=== PATIENT | female | born 1950 | race Caucasian/White ===

== ENCOUNTER → 2017-03-21 | Outpatient (REF) | payer OTHER ==
[2017-03-21 13:26] LABS: ALT/SGPT 23 U/L (12-78); ANION GAP 9 MEQ/L (8-16); BLOOD UREA NITROGEN 11 MG/DL (7-18); CALCIUM LEVEL 9.1 MG/DL (8.8-10.2); CARBON DIOXIDE LEVEL 23 MEQ/L (21-32); CHLORIDE LEVEL 107 MEQ/L (98-107); CHOLESTEROL LEVEL 210 MG/DL (<200); GLOMERULAR FILTRATION RATE > 60.0 (>45); GLUCOSE, FASTING 124 MG/DL (80-110); POTASSIUM SERUM 4.2 MEQ/L (3.5-5.1); SODIUM LEVEL 139 MEQ/L (136-145); TRIGLYCERIDES LEVEL 223 MG/DL (<150)
== END ==
LOC: M SFHCCLAY 08:57
PROVIDERS: ATTEND Family Medicine
DX: I10 Essential (primary) hypertension (principal); E78.2 Mixed hyperlipidemia; I25.10 Atherosclerotic heart disease of native coronary artery without angina pectoris

== ENCOUNTER → 2018-06-08 | Outpatient (REF) | payer OTHER ==
[2018-06-08 11:50] LABS: HEMATOCRIT 40.9 % (36.0-47.0); HEMOGLOBIN 14.2 g/dl (12.0-15.5); MEAN CORPUSCULAR HEMOGLOBIN 30.7 pg (27.0-33.0); MEAN CORPUSCULAR HGB CONC 34.7 g/dl (32.0-36.5); MEAN CORPUSCULAR VOLUME 88.3 fl (80.0-96.0); PLATELET COUNT, AUTOMATED 239 10^3/uL (150-450); RED BLOOD COUNT 4.63 10^6/uL (4.00-5.40); RED CELL DISTRIBUTION WIDTH 13.4 % (11.5-14.5); WHITE BLOOD COUNT 6.4 10^3/uL (4.0-10.0)
[2018-06-08 13:44] LABS: ALBUMIN 3.7 GM/DL (3.2-5.2); ALKALINE PHOSPHATASE 97 U/L (45-117); ALT/SGPT 45 U/L (12-78); ANION GAP 12 MEQ/L (8-16); AST/SGOT 28 U/L (7-37); BILIRUBIN,TOTAL 0.5 MG/DL (0.2-1.0); BLOOD UREA NITROGEN 15 MG/DL (7-18); CALCIUM LEVEL 8.6 MG/DL (8.8-10.2); CARBON DIOXIDE LEVEL 21 MEQ/L (21-32); CHLORIDE LEVEL 108 MEQ/L (98-107); CHOLESTEROL LEVEL 209 MG/DL (<200); CHOLESTEROL RISK RATIO 3.215 (<5); CREATININE FOR GFR 0.86 MG/DL (0.55-1.30); GLOMERULAR FILTRATION RATE > 60.0 (>45); GLUCOSE, FASTING 186 MG/DL (70-100); HDL CHOLESTEROL 65 MG/DL (>40); LDL CHOLESTEROL 106 MG/DL (<100); NON-HDL-C 144 MG/DL; POTASSIUM SERUM 4.4 MEQ/L (3.5-5.1); SODIUM LEVEL 141 MEQ/L (136-145); TOTAL PROTEIN 7.4 GM/DL (6.4-8.2); TRIGLYCERIDES LEVEL 189 MG/DL (<150)
== END ==
LOC: M SFHCCLAY 08:37
DX: I25.10 Atherosclerotic heart disease of native coronary artery without angina pectoris (principal); E78.2 Mixed hyperlipidemia; C50.912 Malignant neoplasm of unspecified site of left female breast
CPT/HCPCS: 80053

== ENCOUNTER → 2019-05-17 | Outpatient (REF) | payer MEDICARE, OTHER ==
[2019-05-17 11:49] LABS: HEMATOCRIT 41.9 % (36.0-47.0); MEAN CORPUSCULAR HEMOGLOBIN 29.9 pg (27.0-33.0); MEAN CORPUSCULAR HGB CONC 33.4 g/dl (32.0-36.5); MEAN CORPUSCULAR VOLUME 89.5 fl (80.0-96.0); PLATELET COUNT, AUTOMATED 250 10^3/uL (150-450); RED BLOOD COUNT 4.68 10^6/uL (4.00-5.40); WHITE BLOOD COUNT 6.8 10^3/uL (4.0-10.0)
[2019-05-17 11:56] LABS: ALBUMIN 3.6 GM/DL (3.2-5.2); ALT/SGPT 26 U/L (12-78); BILIRUBIN,TOTAL 0.4 MG/DL (0.2-1.0); BLOOD UREA NITROGEN 18 MG/DL (7-18); CARBON DIOXIDE LEVEL 25 MEQ/L (21-32); CHLORIDE LEVEL 107 MEQ/L (98-107); CHOLESTEROL LEVEL 184 MG/DL (<200); CREATININE FOR GFR 0.93 MG/DL (0.55-1.30); GLOMERULAR FILTRATION RATE > 60.0 (>45); GLUCOSE, FASTING 160 MG/DL (70-100); HDL CHOLESTEROL 63 MG/DL (>40); LDL CHOLESTEROL 96 MG/DL (<100); NON-HDL-C 121 MG/DL; POTASSIUM SERUM 4.4 MEQ/L (3.5-5.1); SODIUM LEVEL 139 MEQ/L (136-145); TRIGLYCERIDES LEVEL 127 MG/DL (<150)
== END ==
LOC: M SFHCCLAY 08:29
PROVIDERS: ATTEND Family Medicine
DX: I10 Essential (primary) hypertension (principal); I25.10 Atherosclerotic heart disease of native coronary artery without angina pectoris; C50.912 Malignant neoplasm of unspecified site of left female breast

== ENCOUNTER → 2020-03-11 | Outpatient (REF) | payer MEDICARE, OTHER | LOC: M LABDRAWC 11:42 | PROVIDERS: ATTEND Registered Nurse | DX: E53.1 Pyridoxine deficiency (principal); R20.2 Paresthesia of skin ==

== ENCOUNTER → 2020-03-11 | Outpatient (REF) | payer MEDICARE, OTHER ==
[2020-03-11 13:04] LABS: HEMATOCRIT 38.2 % (36.0-47.0); MEAN CORPUSCULAR HEMOGLOBIN 29.6 pg (27.0-33.0); PLATELET COUNT, AUTOMATED 302 10^3/uL (150-450); RED BLOOD COUNT 4.39 10^6/uL (4.00-5.40); WHITE BLOOD COUNT 6.4 10^3/uL (4.0-10.0)
[2020-03-11 13:36] LABS: CREATININE, URINE 36.3 MG/DL; MALB URINE SIEMENS < 5.0 MG/L; MAU/CREAT RATIO 13.7 MCG/MG (0.0-30.0)
[2020-03-11 13:40] LABS: ALBUMIN 3.4 GM/DL (3.2-5.2); ALT/SGPT 36 U/L (12-78); BILIRUBIN,TOTAL 0.4 MG/DL (0.2-1.0); BLOOD UREA NITROGEN 8 MG/DL (7-18); CALCIUM LEVEL 7.4 MG/DL (8.8-10.2); CARBON DIOXIDE LEVEL 27 MEQ/L (21-32); CHLORIDE LEVEL 101 MEQ/L (98-107); CREATININE FOR GFR 0.86 MG/DL (0.55-1.30); GLOMERULAR FILTRATION RATE > 60.0 (>45); GLUCOSE, FASTING 116 MG/DL (70-100); POTASSIUM SERUM 2.6 MEQ/L (3.5-5.1); SODIUM LEVEL 138 MEQ/L (136-145); TOTAL PROTEIN 6.9 GM/DL (6.4-8.2)
== END ==
LOC: M SFHCCLAY 09:25
PROVIDERS: ATTEND Family Medicine
DX: I25.10 Atherosclerotic heart disease of native coronary artery without angina pectoris (principal); I10 Essential (primary) hypertension; C50.912 Malignant neoplasm of unspecified site of left female breast; E11.42 Type 2 diabetes mellitus with diabetic polyneuropathy

== ENCOUNTER → 2020-03-31 | Outpatient (REF) | payer MEDICARE, OTHER ==
[2020-03-31 12:45] LABS: BLOOD UREA NITROGEN 9 MG/DL (7-18); CALCIUM LEVEL 7.8 MG/DL (8.8-10.2); CARBON DIOXIDE LEVEL 26 MEQ/L (21-32); CHLORIDE LEVEL 108 MEQ/L (98-107); CREATININE FOR GFR 0.91 MG/DL (0.55-1.30); GLOMERULAR FILTRATION RATE > 60.0 (>45); GLUCOSE, FASTING 109 MG/DL (70-100); POTASSIUM SERUM 3.8 MEQ/L (3.5-5.1); SODIUM LEVEL 139 MEQ/L (136-145)
== END ==
LOC: M SFHCCLAY 07:22
PROVIDERS: ATTEND Family Medicine
DX: E11.42 Type 2 diabetes mellitus with diabetic polyneuropathy (principal); E87.6 Hypokalemia
CPT/HCPCS: 80048; G0463

== ENCOUNTER → 2020-11-13 | Outpatient (REF) | payer MEDICARE, OTHER ==
[2020-11-13 11:58] LABS: BLOOD UREA NITROGEN 10 MG/DL (7-18); CARBON DIOXIDE LEVEL 26 MEQ/L (21-32); CHLORIDE LEVEL 108 MEQ/L (98-107); CREATININE FOR GFR 0.95 MG/DL (0.55-1.30); GLOMERULAR FILTRATION RATE > 60.0 (>39); GLUCOSE, FASTING 117 MG/DL (70-100); POTASSIUM SERUM 4.6 MEQ/L (3.5-5.1); SODIUM LEVEL 141 MEQ/L (136-145)
== END ==
LOC: M SFHCCLAY 08:32
PROVIDERS: ATTEND Family Medicine
DX: M89.8X9 Other specified disorders of bone, unspecified site (principal); T45.1X5A Adverse effect of antineoplastic and immunosuppressive drugs, initial encounter

== ENCOUNTER → 2020-11-20 | Outpatient (CLI) | payer MEDICARE, OTHER ==
--- NOTE | 2020-11-20 14:31 | REP ---
INDICATION: RIGHT HIP PAIN COMPARISON: None. TECHNIQUE: AP and frog-lateral views of the right femur. FINDINGS: No acute fracture or dislocation. Mild age-related degenerative changes at the hip includes increased sclerosis to the acetabulum with minimal marginal spurring and minimal joint space narrowing. IMPRESSION: Mild age-related degenerative changes at the right hip. <Electronically signed by Javi Galindo > 11/20/20 [id number]
--- NOTE | 2020-11-20 14:31 | REP ---
INDICATION: RIGHT HIP PAIN COMPARISON: None. TECHNIQUE: Single AP view of the right hip FINDINGS: Generalized age-related changes include subtle increased sclerosis to the acetabulum with minimal joint space narrowing. No further overt osteoarthritic or significant degenerative changes are appreciated. No evidence for acute or healed injury. Surrounding soft tissues are normal. IMPRESSION: Mild generalized age-related changes. <Electronically signed by Javi Galindo > 11/20/20 [id number]
== END ==
LOC: M CLY 13:45
PROVIDERS: ATTEND Family Medicine
DX: M16.11 Unilateral primary osteoarthritis, right hip (principal); M25.551 Pain in right hip
CPT/HCPCS: 73502; 73552; G0463

== ENCOUNTER → 2020-12-11 | Outpatient (CLI) | payer MEDICARE, OTHER ==
--- NOTE | 2020-12-11 15:49 | DEXAMM ---
INDICATION: DISORDER OF BONE/MANOPAUSAL/BREAST CA. COMPARISON: 06/04/2019, 03/06/2017. TECHNIQUE: Bone density was measured using dual-energy x-ray absorptiometry (DEXA). FINDINGS: AP SPINE L1-L4 BMD 1.266 g/cm2 Young Adult T-Score 0.6 Age Matched Z-Score 2.3. LT FEMUR, TOTAL BMD 1.031 g/cm2 Young Adult T-Score 0.2 Age Matched Z-Score 1.7. LT NECK BMD 0.913 g/cm2 Young Adult T-Score -0.9 Age Matched Z-Score 0.8. RT FEMUR, TOTAL BMD 0.941 g/cm2 Young Adult T-Score -0.5 Age Matched Z-Score 1.0. RT NECK BMD 0.937 g/cm2 Young Adult T-Score -0.7 Age Matched Z-Score 1.0. IMPRESSION: There is normal bone density of the spine. There is normal bone density of the left hip. There is normal bone density of the right hip. The density of the spine has increased 6.7% since the initial exam on 03/06/2017. The density of the spine increased 3.8% since most recent exam on 06/04/2019. The density of the left hip has increased 8.5% since initial exam on 03/06/2017. The density of the left hip has increased 3.5% since most recent exam on 06/04/2019. The density of the right hip was not performed on prior exams and therefore comparison is not made. FOLLOW-UP: Recommendation for the next bone density exam: 5 years. <Electronically signed by Dewayne Zayas > 12/11/20 [id number]
== END ==
LOC: M WHC 13:01
PROVIDERS: ATTEND Family Medicine
DX: C50.912 Malignant neoplasm of unspecified site of left female breast (principal); M89.8X9 Other specified disorders of bone, unspecified site; T45.1X5A Adverse effect of antineoplastic and immunosuppressive drugs, initial encounter; Z78.0 Asymptomatic menopausal state

== ENCOUNTER → 2021-02-19 | Outpatient (CLI) | payer MEDICARE, OTHER ==
--- NOTE | 2021-02-19 09:11 | REP ---
INDICATION: PAIN IN RT HIP. COMPARISON: None. TECHNIQUE: Frontal AP weight bearing and nonweightbearing views of the pelvis FINDINGS: Somewhat heterogeneous irregular appearance to the left iliac bone cannot be excluded and warrants further investigation. The bilateral hip joints appear symmetric and demonstrate relatively mild arthritic changes including increased sclerosis to the acetabular roof with minimal joint space narrowing remaining relatively stable on weight-bearing view. No obvious acute fracture. IMPRESSION: Somewhat irregular washed out appearance of the left iliac bone with central lucency. Consider pelvic CT for further investigation. <Electronically signed by Javi Galindo > 02/19/21 [id number]
== END ==
LOC: M SOG 08:36
PROVIDERS: ATTEND Orthopaedic Surgery Adult Reconstructive Orthopaedic Surgery
DX: M16.0 Bilateral primary osteoarthritis of hip (principal); M25.551 Pain in right hip

== ENCOUNTER → 2021-03-04 | Outpatient (CLI) | payer MEDICARE, OTHER ==
[~2021-03-04] MED LIST: METF-839 PO
--- NOTE | 2021-03-04 17:29 | REP ---
INDICATION: LUMBAGO W/ SCIATICA RT SIDE. COMPARISON: None. TECHNIQUE: Standard helical technique without intravenous contrast administration The examination was wintered in both bone and soft tissue settings. FINDINGS: There is a large soft tissue mass encircling the left ilium and measuring approximately 11.3 by 10 by 8.9 cm. This is causing osseous destruction of the left ilium. Extensive mixed density is seen throughout all imaged osseous structures of the pelvis and imaged portion of the spine particularly the alice. There is a transverse fracture through the right femoral neck. The imaged bowel loops are unremarkable. There is no evidence of free fluid or free air within the pelvis. IMPRESSION: 1. There is a large left-sided pipe pelvic soft tissue mass with bony destruction as described above. This is consistent with neoplasm. 2. There is osseous metastasis as described above. Does this patient a breast cancer? 3. There is an acute right femoral neck fracture. 4. A stat report was generated at the time of this dictation and faxed to the patient's healthcare provider Dr. Marlon Currie. <Electronically signed by Jd Sanchez > 03/04/21 [id number]
== END ==
LOC: M RAD 16:45
PROVIDERS: ATTEND Orthopaedic Surgery Adult Reconstructive Orthopaedic Surgery
DX: S72.001A Fracture of unspecified part of neck of right femur, initial encounter for closed fracture (principal); M54.41 Lumbago with sciatica, right side; X58.XXXA Exposure to other specified factors, initial encounter; Y92.9 Unspecified place or not applicable; Y99.9 Unspecified external cause status

== ENCOUNTER 2021-03-05 13:45 | Emergency (ER) | payer MEDICARE, OTHER ==
[~2021-03-05] VITALS: Ht 154.9 cm; Wt 84.1 kg
[2021-03-05] MEDS ORDERED: METF-839 PO (13:55)
[2021-03-05] MEDS ORDERED: NORCO, ANEXSIA 5/325MG TABLET (HYDROcodone/ACETAMINOPHEN) PO ONE (14:20)
--- NOTE | 2021-03-05 15:01 | REP ---
INDICATION: pre-op; metastatic disease. COMPARISON: 01/22/2014. TECHNIQUE: Single portable AP view of the chest was performed. FINDINGS: There is hazy opacity projecting over the left lung base at the left heart border. The left heart border is not visualized. The findings could be artifactual, but I cannot exclude a lingular infiltrate. The heart is not felt to be significantly enlarged. The mediastinal silhouette is unchanged, with mild calcification of the thoracic aorta. IMPRESSION: Possible lingular infiltrate versus artifact. <Electronically signed by Dewayne Zayas > 03/05/21 [id number]
[2021-03-05 15:10] LABS: BASO # 0.1 10^3/uL (0.0-0.2); BASO % 0.7 % (0.0-1.0); EOS # 0.2 10^3/uL (0.0-0.5); EOS % 2.3 % (0.0-3.0); LYMPH # 1.8 10^3/uL (1.5-5.0); LYMPH % 24.6 % (24.0-44.0); MEAN CORPUSCULAR HEMOGLOBIN 28.4 pg (27.0-33.0); MEAN CORPUSCULAR HGB CONC 32.5 g/dl (32.0-36.5); MEAN CORPUSCULAR VOLUME 87.3 fl (80.0-96.0); MONO # 0.7 10^3/uL (0.0-0.8); MONO % 9.4 % (2.0-8.0); NEUTROPHILS # 4.6 10^3/uL (1.5-8.5); NEUTROPHILS % 62.6 % (36.0-66.0); PLATELET COUNT, AUTOMATED 347 10^3/uL (150-450); RED BLOOD COUNT 4.58 10^6/uL (4.00-5.40); WHITE BLOOD COUNT 7.4 10^3/uL (4.0-10.0)
[2021-03-05 15:50] LABS: RSV AMPLIFICATION NEGATIVE (NEGATIVE)
--- NOTE | 2021-03-05 16:06 | CR.PDOC ---
General Date of Consultation: Mar 05, 2021 Consultation CHIEF COMPLAINT: Right hip pathologic fracture, pelvis soft tissue mass, bone mets on CT scan HISTORY OF PRESENT ILLNESS: The patient was seen in clinic earlier this month for hip pain that had been bothering her since November. The patient demonstrated primarily symptoms associated with her chronic back pain and radicular type symptoms. An incidental finding of abnormal washout of the patient's left iliac crest region was noted on her AP pelvic x-ray imaging by the radiologist. A CT scan was ordered for further evaluation. The CT scan was completed yesterday and there was a message from the radiology department with concerns for the soft tissue mass with bony metastasis evident on the CT scan as well as a displaced right femoral neck fracture. The patient was contacted by phone. She did report that she had a past medical history significant for breast cancer with her final treatments being approximately 5 years ago. She was being followed annually by Dr. Del Henry at [facility]. I contacted Dr. Henry's office today for coordination of care and advised that the patient present to the emergency room for admission for work-up of this soft tissue mass with associated metastasis and pathologic fracture. I was able to speak to Dr. Del Henry of the heme-onc service at [facility]. He advised biopsy of the soft tissue mass to confirm metastatic breast cancer versus a possible primary osteosarcoma as it has been over 5 years since her last treatments. He did provide his contact number of [phone] if the oncology service at [facility] needs contact him for any additional information or otherwise coordination of care. ASSESSMENT/PLAN: 1. Treatment of the patient's right hip fracture will depend on the results of a soft tissue biopsy of the left hemipelvis mass. I confirmed with Dr. Henry that the soft tissue mass would be best for the biopsy as bone biopsies in this situation can be misleading. ADDENDUM: Contacted ED Charge Nurse after not being informed of pt's admission status. Informed that patient had been transferred to [facility], I believe. Patient was not seen in person prior transfer. Vital Signs/I&O Vital Signs Date Time Temp Pulse Resp B/P (MAP) Pulse Ox O2 Delivery O2 Flow Rate FiO2 03/05/21 14:47 18 03/05/21 14:21 03/05/21 13:45 96.7 86 97 Laboratory Data Labs 24H Laboratory Tests 2 03/05/21 14:44: Immature Granulocyte % (Auto) 0.4, Neutrophils (%) (Auto) 62.6, Lymphocytes (%) (Auto) 24.6, Monocytes (%) (Auto) 9.4H, Eosinophils (%) (Auto) 2.3, Basophils (%) (Auto) 0.7, Neutrophils # (Auto) 4.6, Lymphocytes # (Auto) 1.8, Monocytes # (Auto) 0.7, Eosinophils # (Auto) 0.2, Basophils # (Auto) 0.1, Nucleated Red Blood Cells % (auto) 0.0, Coronavirus (COVID-19)(PCR) NEGATIVE, Influenza Type A (RT-PCR) NEGATIVE, Influenza Type B (RT-PCR) NEGATIVE, Respiratory Syncytial Virus (PCR) NEGATIVE CBC/BMP Laboratory Tests 03/05/21 14:44 Allergies Coded Allergies: No Known Drug Allergies (Verified Allergy, Unknown, 03/05/21) Home Medications Scheduled Metformin HCl (Metformin HCl) 500 Mg Tablet, 500 MG PO BID for 30 Days, #60 (Reported) POLI MESA MD Mar 05, 2021 16:06
[2021-03-05 17:04] LABS: ALBUMIN 3.1 GM/DL (3.2-5.2); ALT/SGPT 17 U/L (12-78); BILIRUBIN,DIRECT < 0.1 MG/DL (0.0-0.2); BILIRUBIN,TOTAL 0.3 MG/DL (0.2-1.0); BLOOD UREA NITROGEN 13 MG/DL (7-18); CALCIUM LEVEL 9.2 MG/DL (8.8-10.2); CARBON DIOXIDE LEVEL 26 MEQ/L (21-32); CHLORIDE LEVEL 102 MEQ/L (98-107); CREATININE FOR GFR 0.83 MG/DL (0.55-1.30); GLOMERULAR FILTRATION RATE > 60.0 (>39); GLUCOSE, FASTING 109 MG/DL (70-100); POTASSIUM SERUM 4.5 MEQ/L (3.5-5.1); SODIUM LEVEL 134 MEQ/L (136-145); TOTAL PROTEIN 6.7 GM/DL (6.4-8.2)
[2021-03-05 19:02] VITALS: BP 117/55
--- NOTE | 2021-03-06 20:42 | ECGEPIP ---
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
== END 2021-03-05 19:04 | disposition short-term general hospital (02) ==
LOC: M ED 13:45
DX: K76.9 Liver disease, unspecified (principal); M84.451A Pathological fracture, right femur, initial encounter for fracture; X58.XXXA Exposure to other specified factors, initial encounter; Y92.89 Other specified places as the place of occurrence of the external cause; I10 Essential (primary) hypertension; E11.9 Type 2 diabetes mellitus without complications; E78.5 Hyperlipidemia, unspecified; Z79.84 Long term (current) use of oral hypoglycemic drugs

== ENCOUNTER → 2021-03-30 | Outpatient (CLI) | payer MEDICARE, OTHER ==
[~2021-03-30] MED LIST changes: +ACET-683 PO; +ANAS1TAB2 PO; +ATOR1TAB19 PO; +EPIN0.3I11 IM; +NOXI1TAB PO; +OMEP1CAP73 PO; +POTA10TA16 PO
--- NOTE | 2021-03-30 17:26 | RADONC.CN ---
Radiation Oncology Hx/Consult Radiation Oncology Consult Date of Service: Mar 30, 2021 Pt Identifier Luz I Kidney is a 70 year old female with a history of left breast cancer diagnosed in 2015 and treated @ [facility] with BL mastectomy showing [id number] ER/DC+ HER2- Grade 2, stage IIIC, adjuvant chemotherapy and PMRT 50.4 Gy in 28 fractions completed 03/10/17. She then was maintained on arimidex. She subsequently developed metastatic disease in February 2021 and experienced pathologic fracture of the right femoral neck which was repaired @ [facility] by Dr. Olson on 03/08/21. She also has a large destructive left iliac bone lesion. Pathology confirmed metastatic breast cancer. She is seen today for co nsideration of palliative RT to the BL hips. Diagnosis/Treatment History Oncologic History As above Interval History She is here with her son. Has no major pain today. Right hip is doing well postoperatively. Incisions healed. On the left she notes occasional numbness down the back of the leg into the foot, she also has intermittent aching pain in the region of the left buttock. Appetite is good weight is stable to up. She has follow up with medical oncology (Dr. Henry in April). Past Medical History: DMII GERD HPL HTN Past Surgical History: As above Right hip arthroplasty 03/08/21 Family History: No family cancer history Social History: Former 1 ppd smoker quit 2004 25 pack year smoking history Does not drink Allergies / Meds Allergies: Coded Allergies: No Known Drug Allergies (Verified Allergy, Unknown, 03/05/21) Home Meds Reported Medications Omeprazole (Omeprazole) 20 Mg Capsule.dr, 1 CAP PO DAILY for 30 Days, #30 CAP 03/30/21 Vitamin D3/Folic Acid (Noxifol-D3 2,500 Unit-1 mg Tab) 2,500 Unit Tablet, 1 TAB PO DAILY for 30 Days, #30 TAB 03/30/21 Anastrozole (Anastrozole) 1 Mg Tablet, 1 TAB PO DAILY for 30 Days, #30 TAB 03/30/21 Atorvastatin Calcium (Atorvastatin Calcium) 10 Mg Tablet, 10 MG PO DAILY, TAB 03/30/21 Acetaminophen (Acetaminophen) 500 Mg Tablet, 500 MG PO Q6H PRN for PAIN, TAB 03/30/21 Potassium Chloride (Potassium Chloride) 10 Meq Tab.er.prt, 10 MEQ PO DAILY, TAB 03/30/21 Epinephrine (Epinephrine) 0.3 Mg/0.3 Ml Auto.injct, 0.3 MG IM 03/30/21 Metformin HCl (Metformin HCl) 500 Mg Tablet, 500 MG PO BID for 30 Days, #60 TAB 03/05/21 Review of Systems Constitutional: Reports: Fatigue; Denies: Chills, Fever, Night Sweats, Weight Loss Eyes: Denies: Pain HEENT: Denies: Head Aches Skin: Denies: Rash Pulmonary: Denies: Dyspnea, Cough Cardiovascular: Denies: Chest Pain Gastrointestinal: Denies: Abdominal Pain, Diarrhea Genitourinary: Denies: Dysuria, Incontinence Musculoskeletal: Reports: Joint pain; Denies: Neck pain, Back pain, Leg pain Neurological: Reports: Numbness; Denies: Weakness Psych: Reports: Mood Normal Vital Signs Wt 177 lbs T 96.7 P 115 RR 18 BP 160/87 Pain 0 Fatigue 0 General Exam: Positive: Alert, Cooperative, No Acute Distress Eye Exam: Positive: PERRLA, EOMI ENT EXAM: Positive: Mucous membr. moist/pink, Pharynx Normal Neck Exam: Negative: Thyromegaly, Lymphadenopathy Chest Exam: Positive: Clear to auscultation, Normal air movement Heart Exam: Positive: Rate Normal, Regular Rhythm Abdomen Exam: Positive: Soft; Negative: Tenderness, Mass Extremity Exam: Positive: Edema Skin Exam: Positive: Nl turgor and temperature Neuro Exam: Positive: Normal Gait, Cranial Nerves 3-12 NL Psych Exam: Positive: Mental status NL Diagnostic and Laboratory Diagnostic Review Radiologic images, relevant labs and pathology reports were personally reviewed and discussed with Ms. Shine. Assessment and Plan Impression Ms. Shine is a 70 year old female with a history of left breast cancer diagnosed in 2015 and treated @ [facility] with mastectomy showing [id number] ER/DC+ HER2- Grade 2, stage IIIC, adjuvant chemotherapy and PMRT 50.4 Gy in 28 fractions completed 03/10/17. She then was maintained on arimidex. She subsequently developed metastatic disease in February 2021 and experienced pathologic fracture of the right femoral neck which was repaired @ [facility] by Dr. Olson on 03/08/21. She also has a large destructive left iliac bone lesion. She is seen today for consideration of palliative RT to the BL hips. Stage Breast cancer stage IV Performance Status ECOG 1 Plan We had an extensive discussion with Ms. Shine regarding the diagnosis at hand and available therapeutic options. I reviewed her CT abdomen and pelvis from 03/04/21 which showed the pathologic right femoral neck fracture as well as a large expansile soft tissue emanating from the right iliac bone. I see no additional lesions or impending fractures on this scan. I have discussed with the [facility] team about completing restaging workup here in advance of her appointment with Dr. Henry in April. To that end I will order a CT chest and a bone scan which should be sufficient. For treatment at this time, I recommend PORT to the right hip 30 Gy in 10 fractions, I also think she would benefit from palliative RT to the left iliac lesion, 30 Gy in 10 fractions. These lesions can be easily treated concurrently with little risk of significant side effects. We discussed the logistics of receiving radiation therapy in detail including the need for a 1-time planning session. This can occur in the coming days. We reviewed the side effects of treatment including fatigue, skin reaction, fibrosis and self limited diarrhea. After discussing the risks, benefits and alternatives to radiation therapy, Ms. Shine was amenable to pursuing radiotherapy. All questions were answered to the patient's satisfaction. We instructed the patient that if there were any questions,concerns or changes in clinical status in the interim to contact us. Recommendations Palliative RT to the BL hips 30 Gy in 10 fractions Simulation in the coming week Ordered CT chest and bone scan to complete restaging Billing Statement Total time of [36] minutes was spent preparing for the visit [2], obtaining HPI [6], examining the patient [2], reviewing diagnostic tests [4], discussing management options [12], coordinating care [3], and writing this note [7]. LINDA PRUITT MD Mar 30, 2021 17:26
== END ==
LOC: M ONCR 14:42
PROVIDERS: ATTEND General Practice
DX: C79.51 Secondary malignant neoplasm of bone (principal); E11.9 Type 2 diabetes mellitus without complications; E78.5 Hyperlipidemia, unspecified; I10 Essential (primary) hypertension; K21.9 Gastro-esophageal reflux disease without esophagitis; Z79.84 Long term (current) use of oral hypoglycemic drugs; Z79.899 Other long term (current) drug therapy; Z85.3 Personal history of malignant neoplasm of breast; Z87.891 Personal history of nicotine dependence; Z90.13 Acquired absence of bilateral breasts and nipples; Z92.21 Personal history of antineoplastic chemotherapy; Z92.3 Personal history of irradiation; Z96.641 Presence of right artificial hip joint

== ENCOUNTER → 2021-04-02 | Outpatient (CLI) | payer MEDICARE, OTHER ==
[~2021-04-02] MED LIST changes: +ISOVUE-370 76% 100ML VIAL As Ordered ONE
--- NOTE | 2021-04-02 08:58 | REP ---
INDICATION: MET BREAST CA- NM FIRST. COMPARISON: AP 03/05/2021, two view 01/22/2014 TECHNIQUE: Seventy-five the mL Isovue 370 scanning through the chest with both coronal and sagittal reconstructions. FINDINGS: Of the lung spangler are well inflated. There is no pleural effusion, pleural thickening, calcified plaque or acute infiltrate. No parenchymal mass or pulmonary nodules. There is some minimal dependent atelectatic change posteriorly in the mid and lower lung zones right greater than left. Minimal curvilinear fibroatelectatic change in the inferior lingular segment of the left upper lobe at the anterior left lung base. The heart is not enlarged and there is no pericardial thickening or effusion. The aorta is without aneurysm or dissection and has some calcifications in the arch and descending portion. The main, left and right pulmonary arteries in the mediastinum were unremarkable. There are no pathologic sized mediastinal, hilar, axillary or supraclavicular nodes. Patient has symmetric breast implants status post mastectomies for breast cancer. There are axillary surgical clips on the left. The sternum, manubrium, spine and its posterior elements, visible portions of clavicles, scapula, humeral heads and ribs were all unremarkable, without focal lesion. Liver shows some heterogeneous appearance right hepatic lobe and medial segment of the left hepatic lobe for region of least a 6 x 9 cm. In addition the lateral segment left hepatic lobe shows a focus with hypodense rim about 4.7 cm with central heterogeneity. There is no ascites. No intrahepatic biliary dilatation. That portion of pancreatic body and tail seen is unremarkable. Spleen is not enlarged and shows no focal lesion. Adrenal glands are normal. Upper poles of kidneys intact. A small hiatal hernia is evident. Some atherosclerotic calcification of the aorta without aneurysm. IMPRESSION: 1. The lung spangler show no parenchymal finding the conform to the hazy density at the left base on recent portable chest. This suggests that that finding was artifact from chest wall such as the breast implant or resolution of subsegmental atelectasis. There is only minimal fibro atelectatic change in the lingula. No parenchymal lung lesions infiltrate or mass. No mediastinal or hilar adenopathy. 2. Bones grossly intact without focal lesion. No adrenal lesion. 3. Heterogeneous zones in the right and left lobe of the liver that are suspicious. Further evaluation with dedicated hepatic MRI without and with contrast or three-phase liver CT scanning is recommended. 4. Status post bilateral mastectomy with reconstruction and bilateral implants. <Electronically signed by Rufino Son > 04/02/21 [id number]
--- NOTE | 2021-04-02 13:36 | REP ---
INDICATION: MET BREAST CA. COMPARISON: Comparison pelvic radiographs and CT study from February of 2021.. TECHNIQUE/RADIOTRACER AND DOSE: 21.1 mCi of Technetium-99m MDP was injected and standard whole-body bone scanning is acquired. FINDINGS: There is uptake in bilateral kidneys and in the urinary bladder. There is a large area of abnormal increased uptake throughout the left iliac bone corresponding to the large bony destructive metastasis in this location on CT and radiographs. There is also abnormal uptake in the medial aspect and posterior aspect of the right iliac bone. Increased uptake is seen throughout the diaphysis of the right femur to the distal femur. Photopenia is seen in the region of the femoral head on the right which may correspond with a hemiarthroplasty or arthroplasty the right hip. This should be correlated with recent surgical history as there was no hip replacement on the March 04, 2021 CT study. In the absence of hip surgery, the photopenia in the right femoral head could reflect avascular necrosis. There is a focus of increased uptake in the anterior rib cage on the right involving rib end number 7. There is increased uptake in the medial clavicles bilaterally. Degenerative uptake is seen in the cervical spine. IMPRESSION: Metastatic disease pattern as above involving bilateral iliac bones and the right femur. There is increased uptake in the medial head of each clavicle. Arthritic uptake is seen in each wrist and there is right anterior 7th rib uptake. Photopenia in the region of the right femoral head should be correlated with patient's surgical history. 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 <Electronically signed by Sergei Roque > 04/02/21 [id number]
== END ==
LOC: M RAD 07:55
PROVIDERS: ATTEND General Practice
DX: C79.51 Secondary malignant neoplasm of bone (principal)
CPT/HCPCS: 71260; 78306; A9503; Q9967

== ENCOUNTER 2021-04-08 13:43 | Outpatient (RCR) | payer MEDICARE, OTHER ==
[~2021-04-08 13:43] MED LIST changes: -ISOVUE-370 76% 100ML VIAL As Ordered ONE
[2021-04-08] MEDS ORDERED: MORP-69 PO (14:59)
[2021-04-09] MEDS ORDERED: OXYC10TA12 PO (13:10)
== END 2021-04-10 ==
LOC: M ONCR 13:43
PROVIDERS: ATTEND General Practice
DX: C79.51 Secondary malignant neoplasm of bone (principal)

== ENCOUNTER → 2021-04-14 | Outpatient (REF) | payer MEDICARE, OTHER ==
[~2021-04-14] MED LIST changes: +MORP-69 PO; +OXYC10TA12 PO
[2021-04-14 16:50] LABS: HEMATOCRIT 34.1 % (36.0-47.0); HEMOGLOBIN 10.5 g/dl (12.0-15.5); MEAN CORPUSCULAR HEMOGLOBIN 26.7 pg (27.0-33.0); MEAN CORPUSCULAR HGB CONC 30.8 g/dl (32.0-36.5); MEAN CORPUSCULAR VOLUME 86.8 fl (80.0-96.0); PLATELET COUNT, AUTOMATED 499 10^3/uL (150-450); RED BLOOD COUNT 3.93 10^6/uL (4.00-5.40); WHITE BLOOD COUNT 8.6 10^3/uL (4.0-10.0)
[2021-04-14 17:03] LABS: ALBUMIN 2.8 GM/DL (3.2-5.2); ALT/SGPT 23 U/L (12-78); BILIRUBIN,TOTAL 0.3 MG/DL (0.2-1.0); BLOOD UREA NITROGEN 11 MG/DL (7-18); CALCIUM LEVEL 9.9 MG/DL (8.8-10.2); CARBON DIOXIDE LEVEL 23 MEQ/L (21-32); CHLORIDE LEVEL 101 MEQ/L (98-107); CREATININE FOR GFR 0.79 MG/DL (0.55-1.30); FREE T4 > 8.00 NG/DL (0.76-1.46); GLOMERULAR FILTRATION RATE > 60.0 (>39); GLUCOSE, FASTING 92 MG/DL (70-100); POTASSIUM SERUM 4.8 MEQ/L (3.5-5.1); SODIUM LEVEL 135 MEQ/L (136-145); TOTAL PROTEIN 6.8 GM/DL (6.4-8.2)
[2021-04-14 17:44] LABS: HEMOGLOBIN A1c 5.9 %
== END ==
LOC: M SFHCCLAY 11:34
PROVIDERS: ATTEND Family Medicine
DX: R60.9 Edema, unspecified (principal); Z79.899 Other long term (current) drug therapy; Z79.84 Long term (current) use of oral hypoglycemic drugs

== ENCOUNTER → 2021-04-14 | Outpatient (CLI) | payer MEDICARE, OTHER ==
[~2021-04-14] MED LIST changes: +POTA-149 PO; -POTA10TA16 PO
== END ==
LOC: M CLY 11:34
PROVIDERS: ATTEND Family Medicine
DX: R60.9 Edema, unspecified (principal); Z79.899 Other long term (current) drug therapy; Z79.84 Long term (current) use of oral hypoglycemic drugs

== ENCOUNTER 2021-04-27 10:44 | Outpatient (RCR) | payer MEDICARE, OTHER ==
[2021-07-30] MEDS ORDERED: OXYC10TA12 PO (09:14)
== END 2021-05-11 ==
LOC: M ONCR 10:44
PROVIDERS: ATTEND General Practice
DX: C79.51 Secondary malignant neoplasm of bone (principal)

== ENCOUNTER → 2021-07-02 | Outpatient (REF) | payer MEDICARE, OTHER ==
[~2021-07-02] MED LIST changes: -POTA-149 PO; +POTA10TA16 PO
[2021-07-02 16:14] LABS: BASO % 0.8 % (0.0-1.0); EOS # 0.1 10^3/uL (0.0-0.5); EOS % 2.7 % (0.0-3.0); HEMATOCRIT 30.2 % (36.0-47.0); HEMOGLOBIN 9.5 g/dl (12.0-15.5); LYMPH # 0.7 10^3/uL (1.5-5.0); LYMPH % 19.2 % (24.0-44.0); MEAN CORPUSCULAR HEMOGLOBIN 28.1 pg (27.0-33.0); MEAN CORPUSCULAR HGB CONC 31.5 g/dl (32.0-36.5); MEAN CORPUSCULAR VOLUME 89.3 fl (80.0-96.0); MONO # 0.4 10^3/uL (0.0-0.8); NEUTROPHILS # 2.5 10^3/uL (1.5-8.5); RED BLOOD COUNT 3.38 10^6/uL (4.00-5.40); WHITE BLOOD COUNT 3.7 10^3/uL (4.0-10.0)
[2021-07-02 16:22] LABS: ALBUMIN 2.9 GM/DL (3.2-5.2); ALT/SGPT 18 U/L (12-78); BILIRUBIN,TOTAL 0.3 MG/DL (0.2-1.0); BLOOD UREA NITROGEN 10 MG/DL (7-18); CALCIUM LEVEL 6.2 MG/DL (8.8-10.2); CARBON DIOXIDE LEVEL 23 MEQ/L (21-32); CHLORIDE LEVEL 110 MEQ/L (98-107); CREATININE FOR GFR 0.69 MG/DL (0.55-1.30); GLOMERULAR FILTRATION RATE > 60.0 (>39); GLUCOSE, FASTING 124 MG/DL (70-100); POTASSIUM SERUM 4.5 MEQ/L (3.5-5.1); SODIUM LEVEL 140 MEQ/L (136-145); TOTAL PROTEIN 6.1 GM/DL (6.4-8.2)
[2021-07-02 18:17] LABS: CA15-3 ANTIGEN 433.5 U/ML (<32.4)
== END ==
LOC: M LABDRAWC 15:32
PROVIDERS: ATTEND Internal Medicine Medical Oncology
DX: C50.412 Malignant neoplasm of upper-outer quadrant of left female breast (principal); Z17.0 Estrogen receptor positive status [ER+]; E11.42 Type 2 diabetes mellitus with diabetic polyneuropathy; Z23 Encounter for immunization
CPT/HCPCS: 80053; 82378; 83036; 85025; 86300; 90682; G0008; G0463

== ENCOUNTER → 2021-07-02 | Outpatient (REF) | payer MEDICARE, OTHER ==
[2021-07-02 16:22] LABS: HEMOGLOBIN A1c 5.4 %
== END ==
LOC: M SFHCCLAY 13:15
PROVIDERS: ATTEND Family Medicine
DX: E11.42 Type 2 diabetes mellitus with diabetic polyneuropathy (principal)

== ENCOUNTER → 2021-07-30 | Outpatient (CLI) | payer MEDICARE, OTHER ==
--- NOTE | 2021-07-30 09:26 | RADONC ---
Radiation Oncology Hx/FUP Radiation Oncology Hx/FUP Date of Service: Jul 30, 2021 Pt Identifier Luz Shine is a 71 year old female seen for a followup visit today at the department of radiation oncology for a history of metastatic left breast cancer diagnosed in 2015 and treated @ [facility] with BL mastectomy showing [id number] ER/WY+ HER2- Grade 2, stage IIIC, adjuvant chemotherapy and PMRT 50.4 Gy in 28 fractions completed 03/10/17. She then was maintained on arimidex. She subsequently developed metastatic disease in February 2021 and experienced pathologic fracture of the right femoral neck which was repaired @ [facility] by Dr. Olson on 03/08/21. She also has a large destructive left iliac bone lesion. Pathology confirmed metastatic breast cancer. She received palliative RT to the left and right hips 30 Gy in 10 fractions 04/14/21-04/27/21. She continues on xeloda BID. Diagnosis/Treatment History Oncologic History As above. Interval History Luz is here with her son. She reports that she has only intermittent pain in the hips and legs, triggered she says by the 'cold and damp days'. The pain is aching in quality when it comes, worse with use. She uses a walker when she has the pain. Some days however she is pain free. When in pain she finds oxycodone 10 mg PRN helpful. The morphine we had tried was not as helpful for pain, but makes her tired. She has seen Dr. Henry recently, she continues on xeloda, she recently had a blood transfusion at [facility]. She feels her taste sensations are off and she notes some hair thinning. No falls at home, fully ambulatory, with or without walker. Current Therapy Xeloda Stage Left breast cancer [id number] ER/WY+ HER2- Grade 2, stage IV Social History: Former 1 ppd smoker quit 2004 25 pack year smoking history Does not drink Allergies / Meds Allergies: Coded Allergies: No Known Drug Allergies (Verified Allergy, Unknown, 03/05/21) Home Meds Active Scripts Oxycodone HCl (Oxycodone HCl) 10 Mg Tablet, 1 TAB PO QIDP PRN for pain MDD 4 Tablet(s), #120 TAB Prov:LINDA PRUITT MD 07/30/21 Reported Medications Omeprazole (Omeprazole) 20 Mg Capsule., 1 CAP PO DAILY for 30 Days, #30 CAP 7/20/21 Vitamin D3/Folic Acid (Noxifol-D3 2,500 Unit-1 mg Tab) 2,500 Unit Tablet, 1 TAB PO DAILY for 30 Days, #30 TAB 03/30/21 Anastrozole (Anastrozole) 1 Mg Tablet, 1 TAB PO DAILY for 30 Days, #30 TAB 03/30/21 Atorvastatin Calcium (Atorvastatin Calcium) 10 Mg Tablet, 10 MG PO DAILY, TAB 03/30/21 Acetaminophen (Acetaminophen) 500 Mg Tablet, 500 MG PO Q6H PRN for PAIN, TAB 03/30/21 Potassium Chloride (Potassium Chloride) 10 Meq Tab.er.prt, 10 MEQ PO DAILY, TAB 03/30/21 Epinephrine (Epinephrine) 0.3 Mg/0.3 Ml Auto.injct, 0.3 MG IM 03/30/21 Metformin HCl (Metformin HCl) 500 Mg Tablet, 500 MG PO BID for 30 Days, #60 TAB 03/05/21 Discontinued Scripts Morphine Sulfate (Morphine Sulfate ER) 15 Mg Tablet.er, 1 TAB PO BID MDD 2 Tablet(s), #30 TAB Prov:LINDA PRUITT MD 04/08/21 Review of Systems Review of Systems Constitutional: Reports: Fatigue; Denies: Weight Loss Eyes: Denies: Pain HEENT: Reports: Other Symptoms (Dysgeusia); Denies: Head Aches Pulmonary: Denies: Dyspnea Cardiovascular: Denies: Chest Pain Gastrointestinal: Denies: Nausea, Vomiting, Abdominal Pain, Diarrhea, Con stipation Hematologic: Denies: Bruising, Bleeding Excessively Musculoskeletal: Reports: Back pain, Leg pain, Joint pain; Denies: Neck pain Neurological: Denies: Weakness, Numbness Psych: Reports: Mood Normal Physical Examination Vital Signs Wt 175.1 lbs VS WNL General Exam: Alert, Cooperative, No Acute Distress Eye Exam: PERRLA, EOMI ENT EXAM: Atraumatic Neck Exam: Supple Chest Exam: Clear to auscultation, Normal air movement Heart Exam: Rate Normal Abdomen Exam: Soft; Negative: Tenderness Extremity Exam: Negative: Edema, Other (No tenderness about the BL hips on palpation) Neuro Exam: Normal Gait, Normal Speech, Cranial Nerves 3-12 NL Psych Exam: Mental status NL Diagnostic and Laboratory Diagnostic Review Radiologic images, relevant labs and pathology reports were personally reviewed and discussed with Ms. Shine. Assessment and Plan Impression Assessment Ms. Shine is a 71 year old female with a history of metastatic left breast cancer diagnosed in 2015 and treated @ [facility] with BL mastectomy showing [id number] ER/WY+ HER2- Grade 2, stage IIIC, adjuvant chemotherapy and PMRT 50.4 Gy in 28 fractions completed 03/10/17. She then was maintained on arimidex. She subsequently developed metastatic disease in February 2021 and experienced pathologic fracture of the right femoral neck which was repaired @ [facility] by Dr. Olson on 03/08/21. She also has a large destructive left iliac bone lesion. Pathology confirmed metastatic breast cancer. She received palliative RT to the left and right hips 30 Gy in 10 fractions 04/14/21-04/27/21. She continues on xeloda BID. Luz has some residual intermittent leg pain associated she says with the weather, some days pain free. 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 In any event I discussed continuing the oxycodone 10 mg QID PRN for her pain which is effective and not overly sedating for her. I will see her back in 3 months time to assess her pain. Performance Status ECOG 2 Plan Follow up in 3 months Refilled oxycodone 10 mg QID PRN Ms. Shine was encouraged to call with questions or concerns in the interim period. Billing Statement Total time of [25] minutes was spent preparing for the visit [2], obtaining HPI [5], examining the patient [2], reviewing diagnostic tests [3], discussing management options [5], coordinating care [2], and writing this note [6]. LINDA PRUITT MD Jul 30, 2021 09:26
== END ==
LOC: M ONCR 08:46
PROVIDERS: ATTEND General Practice
DX: C50.912 Malignant neoplasm of unspecified site of left female breast (principal); C79.51 Secondary malignant neoplasm of bone; Z79.891 Long term (current) use of opiate analgesic; Z79.899 Other long term (current) drug therapy

== ENCOUNTER → 2021-10-26 | Outpatient (CLI) | payer MEDICARE, OTHER ==
[~2021-10-26] MED LIST changes: +POTA-149 PO; -POTA10TA16 PO
== END ==
LOC: M ONCR 10:50
PROVIDERS: ATTEND General Practice
DX: C79.51 Secondary malignant neoplasm of bone (principal); Z85.3 Personal history of malignant neoplasm of breast; Z87.891 Personal history of nicotine dependence; Z90.13 Acquired absence of bilateral breasts and nipples; Z92.21 Personal history of antineoplastic chemotherapy; Z92.3 Personal history of irradiation

== ENCOUNTER → 2021-12-28 | Outpatient (REF) | payer MEDICARE, OTHER ==
[2021-12-29 11:48] LABS: BASO % 0.8 % (0.0-1.0); EOS # 0.1 10^3/uL (0.0-0.5); EOS % 2.3 % (0.0-3.0); HEMATOCRIT 30.5 % (36.0-47.0); LYMPH # 1.1 10^3/uL (1.5-5.0); LYMPH % 21.6 % (24.0-44.0); MEAN CORPUSCULAR HEMOGLOBIN 28.7 pg (27.0-33.0); MEAN CORPUSCULAR HGB CONC 29.5 g/dl (32.0-36.5); MEAN CORPUSCULAR VOLUME 97.1 fl (80.0-96.0); MONO # 0.6 10^3/uL (0.0-0.8); MONO % 12.6 % (2.0-8.0); NEUTROPHILS % 61.9 % (36.0-66.0); PLATELET COUNT, AUTOMATED 290 10^3/uL (150-450); RED BLOOD COUNT 3.14 10^6/uL (4.00-5.40); WHITE BLOOD COUNT 4.9 10^3/uL (4.0-10.0)
[2021-12-29 12:06] LABS: ALBUMIN 3.3 GM/DL (3.2-5.2); ALT/SGPT 18 U/L (12-78); BILIRUBIN,TOTAL 0.3 MG/DL (0.2-1.0); BLOOD UREA NITROGEN 9 MG/DL (7-18); CALCIUM LEVEL 8.1 MG/DL (8.8-10.2); CARBON DIOXIDE LEVEL 24 MEQ/L (21-32); CHLORIDE LEVEL 112 MEQ/L (98-107); FERRITIN 634 NG/ML (8-252); GLOMERULAR FILTRATION RATE > 60.0 (>39); GLUCOSE, FASTING 111 MG/DL (70-100); IRON (FE) 102 UG/DL (50-170); PERCENT SATURATION 25.4 % (13.2-45.0); POTASSIUM SERUM 4.3 MEQ/L (3.5-5.1); SODIUM LEVEL 143 MEQ/L (136-145); TOTAL IRON BINDING CAPACITY 402 UG/DL (250-450); TOTAL PROTEIN 6.2 GM/DL (6.4-8.2)
== END ==
LOC: M SFHCCLAY 14:16
PROVIDERS: ATTEND Physician Assistant
DX: D50.9 Iron deficiency anemia, unspecified (principal)

== ENCOUNTER → 2022-06-14 | Outpatient (CLI) | payer MEDICARE, OTHER | LOC: M CLY 10:52 | PROVIDERS: ATTEND Family Medicine | DX: Z96.642 Presence of left artificial hip joint (principal); R93.7 Abnormal findings on diagnostic imaging of other parts of musculoskeletal system; M25.552 Pain in left hip ==

== ENCOUNTER → 2022-07-08 | Outpatient (REF) | payer MEDICARE, OTHER ==
[2022-07-08 18:21] LABS: EOS % 1.3 % (0.0-3.0); HEMATOCRIT 32.8 % (36.0-47.0); HEMOGLOBIN 10.8 g/dl (12.0-15.5); LYMPH # 1.2 10^3/uL (1.5-5.0); LYMPH % 39.5 % (24.0-44.0); MEAN CORPUSCULAR HEMOGLOBIN 30.9 pg (27.0-33.0); MEAN CORPUSCULAR HGB CONC 32.9 g/dl (32.0-36.5); MEAN CORPUSCULAR VOLUME 93.7 fl (80.0-96.0); MONO # 0.1 10^3/uL (0.0-0.8); MONO % 2.3 % (2.0-8.0); NEUTROPHILS # 1.7 10^3/uL (1.5-8.5); NEUTROPHILS % 55.6 % (36.0-66.0); PLATELET COUNT, AUTOMATED 108 10^3/uL (150-450)
[2022-07-08 18:46] LABS: ALBUMIN 2.9 GM/DL (3.2-5.2); BILIRUBIN,TOTAL 0.2 MG/DL (0.2-1.0); CALCIUM LEVEL 6.6 MG/DL (8.8-10.2); CREATININE FOR GFR 1.13 MG/DL (0.55-1.30); GLOMERULAR FILTRATION RATE 50.4 (>39); TOTAL PROTEIN 6.2 GM/DL (6.4-8.2)
== END ==
LOC: M LABDRAWC 16:38
PROVIDERS: ATTEND Nurse Practitioner
DX: Z51.11 Encounter for antineoplastic chemotherapy (principal)

== ENCOUNTER → 2022-07-28 | Outpatient (REF) | payer MEDICARE, OTHER ==
[2022-07-28 18:27] LABS: BASO # 0.1 10^3/uL (0.0-0.2); BASO % 1.2 % (0.0-1.0); EOS # 0.1 10^3/uL (0.0-0.5); EOS % 1.6 % (0.0-3.0); HEMOGLOBIN 9.8 g/dl (12.0-15.5); LYMPH # 1.5 10^3/uL (1.5-5.0); LYMPH % 30.5 % (24.0-44.0); MEAN CORPUSCULAR HEMOGLOBIN 31.8 pg (27.0-33.0); MEAN CORPUSCULAR HGB CONC 31.6 g/dl (32.0-36.5); MEAN CORPUSCULAR VOLUME 100.6 fl (80.0-96.0); MONO # 0.6 10^3/uL (0.0-0.8); MONO % 11.8 % (2.0-8.0); NEUTROPHILS # 2.6 10^3/uL (1.5-8.5); NEUTROPHILS % 54.3 % (36.0-66.0); PLATELET COUNT, AUTOMATED 373 10^3/uL (150-450); RED BLOOD COUNT 3.08 10^6/uL (4.00-5.40); WHITE BLOOD COUNT 4.9 10^3/uL (4.0-10.0)
[2022-07-28 19:10] LABS: BLOOD UREA NITROGEN 8 MG/DL (9-23); CALCIUM LEVEL 9.4 MG/DL (8.3-10.6); CARBON DIOXIDE LEVEL 27 MMOL/L (20-31); CHLORIDE LEVEL 104 MMOL/L (98-107); CREATININE FOR GFR 0.75 MG/DL (0.55-1.30); GLOMERULAR FILTRATION RATE > 60.0 (>39); GLUCOSE, FASTING 105 MG/DL (74-106); POTASSIUM SERUM 4.3 MMOL/L (3.5-5.1); SODIUM LEVEL 141 MMOL/L (136-145)
[2022-07-28 19:11] LABS: MAGNESIUM LEVEL 0.7 MG/DL (1.8-2.4)
== END ==
LOC: M SFHCCLAY 14:35
PROVIDERS: ATTEND Family Medicine
DX: E83.42 Hypomagnesemia (principal); I10 Essential (primary) hypertension; C50.919 Malignant neoplasm of unspecified site of unspecified female breast

== ENCOUNTER → 2022-08-08 | Outpatient (REF) | payer MEDICARE, OTHER | LOC: M SFHCCLAY 10:06 | PROVIDERS: ATTEND Family Medicine | DX: E83.42 Hypomagnesemia (principal) ==

== ENCOUNTER → 2022-08-24 | Outpatient (REF) | payer MEDICARE, OTHER ==
[2022-08-24 12:09] LABS: HEMOGLOBIN A1c 4.4 % (4.0-6.0)
== END ==
LOC: M SFHCCLAY 08:44
PROVIDERS: ATTEND Family Medicine
DX: E11.42 Type 2 diabetes mellitus with diabetic polyneuropathy (principal); E83.42 Hypomagnesemia

== ENCOUNTER → 2022-10-27 | Outpatient (REF) | payer MEDICARE, OTHER ==
[2022-10-27 18:20] LABS: ALBUMIN 2.7 G/DL (3.2-5.2); BLOOD UREA NITROGEN 17 MG/DL (9-23); CALCIUM LEVEL 8.5 MG/DL (8.3-10.6); CARBON DIOXIDE LEVEL 28 MMOL/L (20-31); CHLORIDE LEVEL 102 MMOL/L (98-107); CREATININE FOR GFR 0.76 MG/DL (0.55-1.30); GLOMERULAR FILTRATION RATE > 60.0 (>39); GLUCOSE, FASTING 111 MG/DL (74-106); POTASSIUM SERUM 4.7 MMOL/L (3.5-5.1); SODIUM LEVEL 135 MMOL/L (136-145)
[2022-10-27 18:29] LABS: HEMOGLOBIN 7.8 g/dl (12.0-15.5); MEAN CORPUSCULAR HEMOGLOBIN 33.5 pg (27.0-33.0); MEAN CORPUSCULAR HGB CONC 32.5 g/dl (32.0-36.5); PLATELET COUNT, AUTOMATED 138 10^3/uL (150-450); RED BLOOD COUNT 2.33 10^6/uL (4.00-5.40); WHITE BLOOD COUNT 3.3 10^3/uL (4.0-10.0)
== END ==
LOC: M SFHCCLAY 10:13
PROVIDERS: ATTEND Family Medicine
DX: I10 Essential (primary) hypertension (principal); E83.42 Hypomagnesemia; I25.10 Atherosclerotic heart disease of native coronary artery without angina pectoris

== ENCOUNTER → 2022-10-28 | Outpatient (CLI) | payer MEDICARE, OTHER ==
[~2022-10-28] MED LIST changes: +diphenhydrAMINE 25MG CAP PO ONE
[2022-10-28 13:35] VITALS: BP 113/53
[2022-10-28 13:55] VITALS: BP 106/42
[2022-10-28 15:12] VITALS: BP 136/63
== END ==
LOC: M INFU 11:10
PROVIDERS: ATTEND Family Medicine
DX: D64.9 Anemia, unspecified (principal); R06.00 Dyspnea, unspecified; C79.51 Secondary malignant neoplasm of bone
CPT/HCPCS: 36415; 36430; 86850; 86900; 86901; 86920; P9016

== ENCOUNTER → 2022-10-31 | Outpatient (CLI) | payer MEDICARE, OTHER ==
[~2022-10-31] MED LIST changes: -diphenhydrAMINE 25MG CAP PO ONE
== END ==
LOC: M CLY 13:01
PROVIDERS: ATTEND Family Medicine
DX: R91.8 Other nonspecific abnormal finding of lung field (principal); I10 Essential (primary) hypertension

== ENCOUNTER → 2023-01-09 | Outpatient (CLI) | payer MEDICARE, OTHER ==
[~2023-01-09] MED LIST changes: +PROHANCE 279.3MG/ML 15ML VIAL As Ordered ONE; +PROHANCE 279.3MG/ML 5ML VIAL As Ordered ONE
== END ==
LOC: M RAD 08:47
PROVIDERS: ATTEND Registered Nurse
DX: M54.2 Cervicalgia (principal)
CPT/HCPCS: 72156; A9576